=== PATIENT | female | born 1990 | race Caucasian/White ===

== ENCOUNTER 2016-10-24 20:01 | Emergency (ER) | payer SELFPAY ==
[~2016-10-24 20:01] MED LIST: ALBU18HF INHALATION; BACTDS PO; CETI10CA PO; HYDR-906 PO; IBUP-1542 PO; NAPR-260 PO; PRED20TA PO
== END 2016-10-24 21:21 | disposition left against medical advice (07) ==
LOC: E/R 20:01
DX: Z53.21 Procedure and treatment not carried out due to patient leaving prior to being seen by health care provider (principal)

== ENCOUNTER 2018-04-19 14:36 | Emergency (ER) | END 2018-04-19 15:42 | disposition left against medical advice (07) ==